=== PATIENT | male | born 1940 | race Caucasian/White ===

== ENCOUNTER 2019-10-17 12:08 | Emergency (ER) | payer MEDICARE, BC ==
[~2019-10-17] VITALS: Ht 188 cm; Wt 108.9 kg
[~2019-10-17 12:08] MED LIST: ADVIL MIGRAINE200 MG PO; BENADRYL25 MG PO; FISH OIL500 M1 PO; GEMFIBROZIL 60600 MG PO; LUPRON; NIASPAN750 MG PO; OMEPRAZOLE10 MG PO; PHENERGAN 25 MG25 MG PO; REPLACE1 EACH PO; ULTRAM 50MG TAB50 MG PO
[2019-10-17 13:40] VITALS: BP 145/80
== END 2019-10-17 13:41 | disposition home or self-care (01) ==
LOC: M.ERS 12:08
DX: S80.01XA Contusion of right knee, initial encounter (principal); S00.81XA Abrasion of other part of head, initial encounter; S60.511A Abrasion of right hand, initial encounter; S60.411A Abrasion of left index finger, initial encounter; S60.415A Abrasion of left ring finger, initial encounter; S60.412A Abrasion of right middle finger, initial encounter; J32.2 Chronic ethmoidal sinusitis; J32.0 Chronic maxillary sinusitis; Z85.46 Personal history of malignant neoplasm of prostate; W00.0XXA Fall on same level due to ice and snow, initial encounter; Y93.89 Activity, other specified; Y92.89 Other specified places as the place of occurrence of the external cause; Y99.8 Other external cause status